=== PATIENT | male | born 1955 | race Two or more races ===

== ENCOUNTER 2019-01-30 14:47 | Inpatient (IN) | payer BC ==
[~2019-01-30] VITALS: Ht 182.9 cm; Wt 83.3 kg
[2019-01-30 15:48] LABS: HEMATOCRIT. 40.7 % (42.0-52.0); HEMOGLOBIN. 14.7 g/dL (14.0-18.0); MEAN CORPUSCULAR VOLUME 91.6 fL (80.0-94.0); MEAN PLATELET VOLUME 6.9 fl (7.4-10.4); PLATELET 194 x1000/uL (130-400); RED BLOOD CELL COUNT 4.44 mill/uL (4.7-6.1); RED CELL DISTRIBUTION WIDTH 12.9 % (11.6-14.6)
[2019-01-30 15:51] LABS: CHLORIDE 104 mEq/L (98-107)
[2019-01-30 15:55] LABS: ETHANOL BLOOD < 10 mg/dL
[2019-01-30 15:57] LABS: INR 1.1; PARTIAL THROMBOPLASTIN TIME 26.6 sec (23.4-31.0); PROTHROMBIN TIME 11.3 sec (9.1-11.1)
[2019-01-30 16:09] LABS: PLATELET ESTIMATE NORMAL
[2019-01-30] MEDS ORDERED: SODIUM CHLORIDE 0.9% 1,000 ML IV ONE (16:12)
[2019-01-30] MEDS ORDERED: ONDANSETRON HCL 4MG/2ML INJ IV ONE (16:15)
[2019-01-30] MEDS ORDERED: IOHEXOL-300 100 ML BOTTLE ONE (19:31)
[2019-01-30] MEDS: SODIUM CHLORIDE 0.9% 1,000 ML IV NR (23:19)
[2019-01-31] MEDS: SODIUM CHLORIDE 0.9% 1,000 ML IV NR (07:30)
[2019-01-31 09:05] VITALS: BP 102/69
[2019-01-31] MEDS ORDERED: ONDANSETRON HCL 4MG/2ML INJ IV PRN (10:00)
[2019-01-31] MEDS ORDERED: OMEP20TA15 MT (10:17)
[2019-01-31] MEDS ORDERED: MORPHINE SULFATE 4 MG/ML CPJ (NOT FOR IM USE) IV PRN (11:55)
[2019-01-31 12:00] VITALS: BP 113/72
[2019-01-31] MEDS: DEXT 5%/0.45% NACL 1000ML 1,000 ML IV SCH ×2 (12:13→20:31)
[2019-01-31 20:23] VITALS: BP 117/71
[2019-02-01] VITALS: BP 116/74
[2019-02-01 04:30] VITALS: BP 123/75
[2019-02-01] MEDS: DEXT 5%/0.45% NACL 1000ML 1,000 ML IV SCH ×2 (05:29→18:51)
[2019-02-01 07:17] LABS: CHLORIDE 110 mEq/L (98-107)
[2019-02-01 07:56] LABS: BASOPHILS % 0.6 % (0.0-2.0); EOSINOPHILS % 2.1 % (0.0-5.0); HEMATOCRIT. 37.6 % (42.0-52.0); HEMOGLOBIN. 13.2 g/dL (14.0-18.0); LYMPHOCYTES % 10.2 % (20.0-50.0); MEAN CORPUSCULAR HEMOGLOBIN 32.4 pg (28.0-32.0); MEAN CORPUSCULAR VOLUME 92.5 fL (80.0-94.0); NEUTROPHILS % 81.1 % (40.0-76.0); PLATELET 177 x1000/uL (130-400); RED BLOOD CELL COUNT 4.07 mill/uL (4.7-6.1); RED CELL DISTRIBUTION WIDTH 13.1 % (11.6-14.6)
[2019-02-01 08:00] VITALS: BP 114/78
[2019-02-01 12:00] VITALS: BP 120/75
[2019-02-01] MEDS ORDERED: KETOROLAC 30MG/ML VIAL IV PRN (13:00)
[2019-02-01 16:00] VITALS: BP 107/73
[2019-02-01 20:00] VITALS: BP 99/72
[2019-02-02] VITALS: BP 107/70
[2019-02-02] MEDS: DEXT 5%/0.45% NACL 1000ML 1,000 ML IV SCH (02:15)
[2019-02-02 04:00] VITALS: BP 104/65
[2019-02-02 07:12] LABS: CHLORIDE 110 mEq/L (98-107)
[2019-02-02 07:41] LABS: BASOPHILS % 1.5 % (0.0-2.0); HEMATOCRIT. 35.9 % (42.0-52.0); HEMOGLOBIN. 12.8 g/dL (14.0-18.0); MEAN CORPUSCULAR HEMOGLOBIN 32.5 pg (28.0-32.0); MEAN CORPUSCULAR VOLUME 91.5 fL (80.0-94.0); MONOCYTES % 6.7 % (2.0-8.0); NEUTROPHILS % 68.8 % (40.0-76.0); PLATELET 177 x1000/uL (130-400); RED BLOOD CELL COUNT 3.93 mill/uL (4.7-6.1)
[2019-02-02 08:00] VITALS: BP 107/75
[2019-02-02 12:00] VITALS: BP 106/68
[2019-02-02 15:34] VITALS: BP 108/65
[2019-02-02 16:26] VITALS: BP 108/65
[2019-02-05 09:06] LABS: SACCHAROMYCES CEREVISIAE IGG <20.0 Units (0.0-24.9); SACCHAROMYCES CEREVISIAE IGM <20.0 Units (0.0-24.9)
[2019-02-05 13:06] LABS: ATYPICAL pANCA <1:20 titer (Neg:<1:20)
== END 2019-02-02 17:20 | disposition home or self-care (01) | DRG 392 ==
LOC: ER 14:47 → EDBEDREQ 20:58 → 8WST 21:04 → EDBEDREQ 21:08 → ENRESERV 01-31 07:10
PROVIDERS: ADMIT Internal Medicine; ATTEND Internal Medicine
DX: K52.9 Noninfective gastroenteritis and colitis, unspecified (principal); K56.609 Unspecified intestinal obstruction, unspecified as to partial versus complete obstruction; R07.89 Other chest pain; I10 Essential (primary) hypertension; Z88.5 Allergy status to narcotic agent; V49.40XA Driver injured in collision with unspecified motor vehicles in traffic accident, initial encounter; Y93.89 Activity, other specified; Y92.488 Other paved roadways as the place of occurrence of the external cause; Y99.8 Other external cause status
CPT/HCPCS: 36415; 71045; 71260; 74018; 74177; 80048; 80320; 83880; 84484; 86256; 86671; 86850; 86900; 93005; 93970; 96360; 96361; 99285; J2270; J2405; J7030; Q9967; G0480